=== PATIENT | female | born 1975 | race Caucasian/White ===

== ENCOUNTER → 2018-05-03 | Outpatient (REF) | payer BC ==
[2018-05-03 13:38] LABS: AMORPHOUS SEDIMENT LARGE (NEGATIVE); APPEARANCE, URINE TURBID (CLEAR); BACTERIA, URINE AUTO NEGATIVE (NEGATIVE); BILIRUBIN, URINE AUTO NEGATIVE (NEGATIVE); BLOOD, URINE BLOOD NEGATIVE (NEGATIVE); GLUCOSE, URINE (UA) AUTO NEGATIVE (NEGATIVE); KETONE, URINE AUTO NEGATIVE (NEGATIVE); LEUKOCYTE ESTERASE, URINE AUTO NEGATIVE (NEGATIVE); NITRITE, URINE AUTO NEGATIVE (NEGATIVE); PROTEIN, URINE AUTO NEGATIVE (NEGATIVE); RBC, URINE AUTO 0 /HPF (0-3); SPECIFIC GRAVITY URINE AUTO 1.021 (1.002-1.035); SQUAMOUS EPITHELIAL CELL UR AU 5 /HPF (0-6); UROBILINOGEN, URINE AUTO 0.2 mg/dL (0.0-2.0); WBC, URINE AUTO 6 /HPF (0-3)
[2018-05-03 13:41] LABS: COLOR, URINE YELLOW (YELLOW)
== END ==
LOC: M SMT 12:52
DX: R39.15 Urgency of urination (principal)
CPT/HCPCS: 81001

== ENCOUNTER → 2021-05-07 | Outpatient (REF) | payer BC ==
[~2021-05-07] MED LIST: ALPR0.25 PO; BACT800T5 PO; BUPR150T12 PO; DULO1CAP6 PO; EPIN0.3I11 IM; FAMO40TA3 PO; HYDR-3713 PO; LANS30CA93 PO; LIOT25TA8 PO; LISI10TA22 PO; MYRB50TA PO; OLOP0.1D OU; RIME75TA PO; SYNT150T PO; [UNRECOGNIZED DRUG - REMARK]
[2021-05-07 13:46] LABS: APPEARANCE, URINE HAZY (CLEAR); BACTERIA, URINE AUTO NEGATIVE (NEGATIVE); BILIRUBIN, URINE AUTO NEGATIVE (NEGATIVE); BLOOD, URINE BLOOD NEGATIVE (NEGATIVE); COLOR, URINE YELLOW (YELLOW); GLUCOSE, URINE (UA) AUTO NEGATIVE (NEGATIVE); KETONE, URINE AUTO NEGATIVE (NEGATIVE); LEUKOCYTE ESTERASE, URINE AUTO NEGATIVE (NEGATIVE); MUCUS, URINE SMALL (NEGATIVE); NITRITE, URINE AUTO NEGATIVE (NEGATIVE); PROTEIN, URINE AUTO NEGATIVE (NEGATIVE); RBC, URINE AUTO 0 /HPF (0-3); SPECIFIC GRAVITY URINE AUTO 1.019 (1.002-1.035); SQUAMOUS EPITHELIAL CELL UR AU 4 /HPF (0-6); UROBILINOGEN, URINE AUTO 0.2 mg/dL (0.0-2.0); WBC, URINE AUTO 3 /HPF (0-3)
== END ==
LOC: M SMT 13:12
PROVIDERS: ATTEND Urology
DX: R32 Unspecified urinary incontinence (principal)

== ENCOUNTER 2021-06-17 06:52 | Day surgery (SDC) | payer BC ==
[~2021-06-17] VITALS: Ht 154.9 cm; Wt 96.2 kg
[~2021-06-17 06:52] MED LIST changes: -BACT800T5 PO; -HYDR-3713 PO; -[UNRECOGNIZED DRUG - REMARK]; +ceFAZolin SOD 2 GM in IV 1 EA IV ONE
[2021-06-17] MEDS ORDERED: LIDOCAINE 1% SDV 30ML VIAL As Ordered ONE (08:07)
[2021-06-17] MEDS ORDERED: ONDANSETRON 4MG/2ML VIAL As Ordered ONE (08:32)
[2021-06-17] MEDS ORDERED: MIDAZOLAM INJ 2MG/2ML VIAL (J2250 PER 1MG) As Ordered ONE (08:32)
[2021-06-17] MEDS ORDERED: fentaNYL 100 MCG/2 ML INJECTION (J3010) As Ordered ONE (08:32)
[2021-06-17] MEDS ORDERED: ACETAMINOPHEN 1000MG 100ML IV BTL (OFIRMEV) (J0131 PER 10MG) As Ordered ONE (08:39)
[2021-06-17] MEDS ORDERED: BACT800T5 PO ×2 (09:18→13:49)
[2021-06-17 09:35] VITALS: BP 129/78
== END 2021-06-17 10:02 | disposition home or self-care (01) ==
LOC: M SDC 06:52
PROVIDERS: ATTEND Urology
DX: R32 Unspecified urinary incontinence (principal); N32.81 Overactive bladder; E03.9 Hypothyroidism, unspecified; R12 Heartburn; F32.A Depression, unspecified; F41.9 Anxiety disorder, unspecified; Z88.1 Allergy status to other antibiotic agents; Z79.899 Other long term (current) drug therapy; Z79.890 Hormone replacement therapy
CPT/HCPCS: 64581; 76000; 81025; C1778; C1787; J0131; J0690; J2250; J2405; J3010

== ENCOUNTER 2021-07-01 10:06 | Day surgery (SDC) | payer BC ==
[~2021-07-01] VITALS: Ht 154.9 cm; Wt 95.3 kg
[~2021-07-01 10:06] MED LIST changes: +BACT800T5 PO; +LIDOCAINE 1% MDV 20ML VIAL SQ PRN; +LR 1,000 ML IV ONE; +[UNRECOGNIZED DRUG - REMARK]
[2021-07-01] MEDS ORDERED: ROCURONIUM BROMIDE 50 MG/5 ML VIAL As Ordered ONE (11:54)
[2021-07-01] MEDS ORDERED: fentaNYL 100 MCG/2 ML INJECTION As Ordered ONE (11:54)
[2021-07-01] MEDS ORDERED: LIDOCAINE 2% 100MG/5ML SDV (FOR ANES.) As Ordered ONE (11:54)
[2021-07-01] MEDS ORDERED: MIDAZOLAM INJ 2MG/2ML VIAL (J2250 PER 1MG) As Ordered ONE (11:54)
[2021-07-01] MEDS ORDERED: propofoL 200 MG/20 ML VIAL As Ordered ONE (11:54)
[2021-07-01] MEDS ORDERED: LIDOCAINE 1% SDV 30ML VIAL As Ordered ONE (12:11)
[2021-07-01] MEDS ORDERED: propofoL 500 MG/50 ML VIAL As Ordered ONE ×2 (12:14→13:28)
[2021-07-01] MEDS ORDERED: CLINDAMYCIN 600 MG/50 ML PREMIX BAG As Ordered ONE (12:36)
[2021-07-01] MEDS ORDERED: ONDANSETRON 4MG/2ML VIAL As Ordered ONE (12:46)
[2021-07-01] MEDS ORDERED: dexameTHASONE 4 MG/ML 1ML VIAL (J1100 PER 1MG) As Ordered ONE (12:46)
[2021-07-01] MEDS ORDERED: METOPROLOL 5 MG/5 ML VIAL As Ordered ONE (13:00)
[2021-07-01] MEDS ORDERED: LIDOCAINE 1% MDV 20ML VIAL As Ordered ONE (13:36)
[2021-07-01] MEDS ORDERED: BACT800T5 PO (14:06)
[2021-07-01] MEDS ORDERED: HYDR-3713 PO (14:06)
[2021-07-01 14:39] VITALS: BP 116/69
== END 2021-07-01 14:49 | disposition home or self-care (01) ==
LOC: M SDC 10:06
PROVIDERS: ATTEND Urology
DX: N32.81 Overactive bladder (principal); E03.9 Hypothyroidism, unspecified; E04.1 Nontoxic single thyroid nodule; F32.A Depression, unspecified; F41.9 Anxiety disorder, unspecified; I10 Essential (primary) hypertension; R06.83 Snoring; Z79.899 Other long term (current) drug therapy; Z88.1 Allergy status to other antibiotic agents; Z88.8 Allergy status to other drugs, medicaments and biological substances; Z91.048 Other nonmedicinal substance allergy status
CPT/HCPCS: 64590; 76000; 81025; C1787; C1897; J1100; J2250; J2405; J3010